=== PATIENT | female | born 1995 ===

== ENCOUNTER 2018-08-22 09:27 | Emergency (ER) | payer OTHER ==
[2018-08-22 10:00] VITALS: BP 129/78
--- NOTE | 2018-08-22 10:22 | UC ---
FLU HPI - HPI Summary HPI Summary: 23-year-old female presents with onset of fever, chills, body aches, bilateral ear fullness, and mild sore throat yesterday. Denies nasal congestion, cough, chest pain, shortness of breath, abdominal pain, nausea, vomiting, diarrhea, dysuria, frequency, or urgency. - History of Current Complaint Chief Complaint: UCGeneralIllness Stated Complaint: FEVER, BODY ACHES Time Seen by Provider: 08/22/18 10:03 Hx Last Menstrual Period: irreg Pain Intensity: 6 - Allergy/Home Medications Allergies/Adverse Reactions: Allergies Allergy/AdvReac Type Severity Reaction Status Date / Time fluoxetine [From Prozac] Allergy fell out Verified 08/22/18 10:01 of body naproxen [From Naprosyn] Allergy fell ourt Verified 08/22/18 10:02 of body Home Medications: Home Medications NK [No Home Medications Reported] 08/22/18 [History Confirmed 08/22/18] PMH/Surg Hx/FS Hx/Imm Hx Previously Healthy: Yes - Denies significant PMH - Surgical History Surgical History: Yes Surgery Procedure, Year, and Place: wisdom teeth - Family History Known Family History: Positive: Non-Contributory - Social History Occupation: Employed Full-time Lives: With Family Alcohol Use: Occasionally Substance Use Type: None Smoking Status (MU): Never Smoked Tobacco Review of Systems All Other Systems Reviewed And Are Negative: Yes Constitutional: Positive: Fever, Chills, Fatigue Skin: Negative: Rash Eyes: Negative: Drainage, Eye Redness ENT: Positive: Sore Throat, Ear Ache. Negative: Nasal Discharge, Sinus Congestion, Sinus Pain/Tenderness Respiratory: Negative: Shortness Of Breath, Cough Cardiovascular: Negative: Palpitations, Chest Pain Gastrointestinal: Negative: Abdominal Pain, Vomiting, Diarrhea, Nausea Genitourinary: Negative: Dysuria, Frequency, Urgency Is Patient Immunocompromised?: No Physical Exam - Summary Physical Exam Summary: GENERAL APPEARANCE: Well developed, well nourished, alert and cooperative, and appears to be in no acute distress. EYES: Conjunctiva clear. No drainage. Vision is grossly intact. EARS: External auditory canals and tympanic membranes clear, hearing grossly intact. NOSE: No nasal discharge. THROAT: Oral cavity and pharynx normal. No inflammation, swelling, exudate, or lesions. Teeth and gingiva in good general condition. NECK: Neck supple, non-tender without lymphadenopathy. CARDIAC: Normal S1 and S2. No S3, S4 or murmurs. Rhythm is regular. There is no peripheral edema, cyanosis or pallor. Extremities are warm and well perfused. Capillary refill is less than 2 seconds. LUNGS: Clear to auscultation and percussion without rales, rhonchi, wheezing or diminished breath sounds. ABDOMEN: Positive bowel sounds. Soft, nondistended, nontender. No guarding or rebound. No masses or hepatosplenomegally. SKIN: Skin normal color, texture and turgor with no lesions or eruptions. Triage Information Reviewed: Yes Vital Signs: Initial Vital Signs Temp 99.9 F 08/22/18 09:58 Pulse 84 08/22/18 09:58 Resp 16 08/22/18 09:58 BP 129/78 08/22/18 09:58 Pulse Ox 100 08/22/18 09:58 Vital Signs Reviewed: Yes Diagnostics - Laboratory Diagnostic Studies Completed/Ordered: Rapid flu negative Flu Course/Dx - Course Course Of Treatment: 23-year-old female presents with onset of fever, chills, body aches, bilateral ear fullness, and mild sore throat yesterday. Denies nasal congestion, cough, chest pain, shortness of breath, abdominal pain, nausea , vomiting, diarrhea, dysuria, frequency, or urgency. Afebrile. VSS. Exam unremarkable. Rapid flu negative. Suspect viral illness. Recommend symptomatic treatment. Warning symptoms reviewed with patient. Verbalizes understanding. Agrees with POC. - Differential Dx/Diagnosis Differential Diagnosis/HQI/PQRI: Influenza, Upper Respiratory Infection Provider Diagnosis: Viral illness Discharge - Sign-Out/Discharge Documenting (check all that apply): Patient Departure All imaging exams completed and their final reports reviewed: No Studies - Discharge Plan Condition: Stable Disposition: HOME Patient Education Materials: Viral Syndrome (ED) Referrals: No Primary Care Phys,NOPCP [Primary Care Provider] - Additional Instructions: The rapid flu test performed in the clinic today was negative. Your history and exam are consistent with a viral upper respiratory infection. Viral infections do not respond to antibiotics and are limited to the treatment of symptoms. Viral infections typically run their course in 7-10 days. Get plenty of rest. Drink plenty of fluids to avoid dehydration especially if you are running any fever. Take over the counter acetaminophen (Tylenol) or ibuprofen (Advil, Motrin) according to directions as needed for pain or fever. Use salt water gargles several times a day if you have a sore throat. You may also use Chloraseptic spray or Cepacol lonzenges according to directions which contain a numbing medication and can provide some temporary relief from your sore throat. Follow up with your primary care provider in 7 days if symptoms persist. Seek immediate medical attention in the emergency room if you have fever greater than 100.5 F despite taking acetaminophen or ibuprofen, have chest pain , difficulty breathing, are unable to swallow, or have any worsening of symptoms. - Billing Disposition and Condition Condition: STABLE Disposition: Home
== END 2018-08-22 10:35 | disposition home or self-care (01) ==
LOC: UCEAST 09:27
DX: B34.9 Viral infection, unspecified (principal); R52 Pain, unspecified; J02.9 Acute pharyngitis, unspecified; H93.8X3 Other specified disorders of ear, bilateral; Z88.8 Allergy status to other drugs, medicaments and biological substances
CPT/HCPCS: 99201; G0463